=== PATIENT | female | born 1970 | race Caucasian/White ===

== ENCOUNTER 2021-01-05 21:05 | Inpatient (IN) ==
[2021-01-05 22:04] LABS: Basophils % 0.3 %; Eosinophils # 0.1 K/mcL (0.0-0.6); Eosinophils % 1.4 %; Hematocrit 35.3 % (35.3-44.9); Immature Granulocytes % 0.5 % (0-4); Lymphocytes # 1.8 K/mcL (0.6-4.6); Lymphocytes % 24.7 %; Mean Corpuscular HGB Conc 31.2 g/dL (31.6-35.5); Mean Corpuscular Hemoglobin 25.6 pg (28.0-33.3); Mean Corpuscular Volume 82.3 fL (83.0-100.0); Mean Platelet Volume 10.5 fL (9.4-12.4); Monocytes # 0.5 K/mcL (0.0-1.3); Monocytes % 7.2 %; Neutrophils # 4.8 K/mcL (1.6-8.9); Platelet Count 294 K/mcL (140-400); Red Blood Count 4.29 M/mcL (3.82-4.97); Red Cell Distribution Width 13.9 % (11.5-14.5); Segmented Neutrophils % 65.9 %; White Blood Count 7.3 K/mcL (4.3-11.1)
[2021-01-05] MEDS ORDERED: Isovue-370 500 ML BOTTLE IVP ONE (22:07)
[2021-01-05 22:33] LABS: Chloride 99 mEq/L (98-107); Potassium 3.7 mEq/L (3.5-5.1); Sodium 134 mEq/L (136-145)
[2021-01-05 22:50] LABS: BUN/Creatinine Ratio 18 (6-26); Blood Urea Nitrogen 15 mg/dL (6-20); C-Reactive Protein 67 mg/L (Less than 10); Calcium 9.1 mg/dL (8.6-10.3); Carbon Dioxide 26 mEq/L (23-29); Glucose 249 mg/dL (70-105); Osmolality,Calculated 287 (280-300); eGFR For African Americans > 60 (> 60); eGFR For Non-African Americans > 60 (> 60)
[2021-01-06] MEDS ORDERED: Piperacillin/Tazobactam 3.375 GM in Water for inj. (sterile) 20 ML IVP ONE (00:35)
[2021-01-06] MEDS ORDERED: Vancomycin 1,500 MG/265 ML IV.SOLN IVPB ONE (01:00)
[2021-01-06 01:36] LABS: Bilirubin,Urine Negative (Negative); Blood,Urine Negative (Negative); Clarity,Urine Clear (Clear); Color,Urine Colorless (Yellow); Glucose,Urine (UA) 500 mg/dL (Normal); Ketones,Urine Negative (Negative); Leukocyte Esterase,Urine Negative (Negative); Mucus,Urine Few per lpf (None-Few); Nitrite,Urine Negative (Negative); PH,Urine 6.5 pH Units (5.0-8.0); Protein,Urine Trace mg/dL (Neg-Trace); RBC,Urine 0-3 per hpf (0-3); Specific Gravity,Urine > 1.030 (1.010-1.025); Squamous Epithelial Cell,Urine Few per hpf (None-Few); Urobilinogen,Urine Normal (Normal); WBC,Urine 0-3 per hpf (0-3)
[2021-01-06] MEDS ORDERED: Ondansetron 4 MG/2 ML VIAL IVP PRN ×2 (02:06→17:32)
[2021-01-06] MEDS ORDERED: Naloxone 0.4 MG/ML INJ IVP PRN ×2 (02:06→17:32)
[2021-01-06] MEDS ORDERED: *HR* Dextrose 50 % in Water (Vial) 50 ML VIAL IVP PRN ×2 (02:08→17:32)
[2021-01-06] MEDS ORDERED: D5% in Water 1,000 ML IVC PRN ×2 (02:08→17:32)
[2021-01-06] MEDS ORDERED: Dextrose Gel 15 GM/37.5 ML TUBE PO PRN ×4 (02:08→17:32)
[2021-01-06] MEDS: Insulin LISPRO 300 UNITS/3 ML VIAL SUBQ SCH ×3 (05:58→19:27)
[2021-01-06 07:42] LABS: Hematocrit 32.6 % (35.3-44.9); Hemoglobin 10.5 g/dL (11.5-15.4); Mean Corpuscular HGB Conc 32.2 g/dL (31.6-35.5); Mean Corpuscular Hemoglobin 26.3 pg (28.0-33.3); Mean Corpuscular Volume 81.5 fL (83.0-100.0); Mean Platelet Volume 10.7 fL (9.4-12.4); Platelet Count 272 K/mcL (140-400); Red Cell Distribution Width 13.9 % (11.5-14.5); White Blood Count 7.5 K/mcL (4.3-11.1)
[2021-01-06 07:57] LABS: BUN/Creatinine Ratio 20 (6-26); Blood Urea Nitrogen 15 mg/dL (6-20); Carbon Dioxide 25 mEq/L (23-29); Chloride 100 mEq/L (98-107); Glucose 202 mg/dL (70-105); Osmolality,Calculated 285 (280-300); Potassium 3.7 mEq/L (3.5-5.1); Sodium 134 mEq/L (136-145); eGFR For African Americans > 60 (> 60); eGFR For Non-African Americans > 60 (> 60)
[2021-01-06] MEDS: Piperacillin/Tazobactam 3.375 GM in 0.9 % Sodium Chloride Mini Bag 100 ML IVPB SCH ×2 (08:41→15:36)
[2021-01-06 09:43] LABS: Estimated Average Glucose 237 mg/dl; Hemoglobin A1C 9.9 %
[2021-01-06] MEDS ORDERED: Vancomycin 1,250 MG/262.5 ML IV.SOLN IVPB SCH (13:00)
[2021-01-06] MEDS ORDERED: Famotidine 20 MG/2 ML VIAL ONE (16:02)
[2021-01-06] MEDS ORDERED: *HR* FentaNYL (PF) 100 MCG/2 ML VIAL ONE (16:02)
[2021-01-06] MEDS ORDERED: Acetaminophen IV 1,000 MG/100 ML BAG IVPB ONE ×2 (16:02→16:18)
[2021-01-06] MEDS ORDERED: *HR* Midazolam HCl 2 MG/2 ML VIAL ONE (16:03)
[2021-01-06] MEDS ORDERED: Lidocaine -MPF 2% 2 ML VIAL ONE (16:03)
[2021-01-06] MEDS ORDERED: Metoprolol XL (24 HR) Succ 25 MG TAB.ER.24H PO SCH (18:30)
[2021-01-07] MEDS: Vancomycin 1,250 MG/262.5 ML IV.SOLN IVPB SCH ×2 (00:20→20:38)
[2021-01-07] MEDS: Piperacillin/Tazobactam 3.375 GM in 0.9 % Sodium Chloride Mini Bag 100 ML IVPB SCH ×3 (00:20→16:25)
[2021-01-07] MEDS: Insulin LISPRO 300 UNITS/3 ML VIAL SUBQ SCH ×4 (00:40→17:18)
[2021-01-07 03:24] LABS: % Iron Saturation 13 % (15-50); BUN/Creatinine Ratio 16 (6-26); Blood Urea Nitrogen 13 mg/dL (6-20); Calcium 8.6 mg/dL (8.6-10.3); Carbon Dioxide 28 mEq/L (23-29); Chloride 99 mEq/L (98-107); Glucose 209 mg/dL (70-105); Iron 41 mcg/dL (50-170); Magnesium 1.5 mg/dL (1.6-2.6); Osmolality,Calculated 284 (280-300); Potassium 3.8 mEq/L (3.5-5.1); Sodium 134 mEq/L (136-145); Transferrin 228 mg/dL (203-362); eGFR For African Americans > 60 (> 60); eGFR For Non-African Americans > 60 (> 60)
[2021-01-07 03:25] LABS: Basophils % 0.4 %; Eosinophils # 0.1 K/mcL (0.0-0.6); Eosinophils % 1.3 %; Hematocrit 34.4 % (35.3-44.9); Hemoglobin 10.9 g/dL (11.5-15.4); Immature Granulocytes % 0.4 % (0-4); Lymphocytes # 0.8 K/mcL (0.6-4.6); Mean Corpuscular HGB Conc 31.7 g/dL (31.6-35.5); Mean Corpuscular Hemoglobin 26.3 pg (28.0-33.3); Mean Corpuscular Volume 82.9 fL (83.0-100.0); Mean Platelet Volume 10.6 fL (9.4-12.4); Monocytes # 0.4 K/mcL (0.0-1.3); Monocytes % 8.1 %; Neutrophils # 3.3 K/mcL (1.6-8.9); Platelet Count 257 K/mcL (140-400); Red Blood Count 4.15 M/mcL (3.82-4.97); Segmented Neutrophils % 72.8 %; White Blood Count 4.5 K/mcL (4.3-11.1)
[2021-01-07 03:42] LABS: Ferritin 67 ng/mL (10-120)
[2021-01-07 04:02] LABS: Folate > 22.3 ng/mL (3.0-16.0); Vitamin B12 101 pg/mL (250-1100)
[2021-01-07] MEDS ORDERED: Acetaminophen 325 MG TABLET PO PRN ×2 (07:31→20:53)
[2021-01-07] MEDS ORDERED: Cyanocobalamin (B-12) 1,000 MCG/ML VIAL SQ ONE (07:31)
[2021-01-07] MEDS ORDERED: PARoxetine 20 MG TABLET PO SCH ×2 (09:00→21:00)
[2021-01-07] MEDS ORDERED: Folic Acid 1 MG TABLET PO SCH (09:00)
[2021-01-07] MEDS ORDERED: Iron Sucrose Complex 250 MG in 0.9 % Sodium Chloride 250 ML IVPB SCH (09:00)
[2021-01-07] MEDS ORDERED: Loratadine 10 MG TABLET PO SCH (09:00)
[2021-01-07] MEDS ORDERED: Cholecalciferol (D-3) 1,000 UNIT (25MCG) TABLET PO SCH (09:00)
[2021-01-07] MEDS ORDERED: Metoprolol XL (24 HR) Succ 25 MG TAB.ER.24H PO SCH (09:00)
[2021-01-07] MEDS ORDERED: NON-FORMULARY MEDICATION 1 EACH EACH (Omeprazole [Prilosec] 40 MG Capsule.Dr) PO SCH (09:00)
[2021-01-07] MEDS ORDERED: *HR* OxyCODONE Immed Rel 5 MG TABLET PO PRN (13:26)
[2021-01-07] MEDS: Insulin DETEMIR 100 UNIT/ML X5UNITS SUBQ SCH (14:17)
[2021-01-07] MEDS: Vancomycin 1,500 MG/265 ML IV.SOLN IVPB SCH (14:17)
[2021-01-07] MEDS: Metoprolol XL (24 HR) Succ 50 MG TAB.ER.24H PO SCH (14:17)
[2021-01-07] MEDS ORDERED: Insulin LISPRO 300 UNITS/3 ML VIAL SUBQ SCH (21:00)
[2021-01-08] MEDS: Piperacillin/Tazobactam 3.375 GM in 0.9 % Sodium Chloride Mini Bag 100 ML IVPB SCH ×3 (01:19→15:49)
[2021-01-08] MEDS: Vancomycin 1,500 MG/265 ML IV.SOLN IVPB SCH ×2 (01:19→15:48)
[2021-01-08 02:44] LABS: Basophils % 0.8 %; Eosinophils # 0.1 K/mcL (0.0-0.6); Eosinophils % 1.4 %; Hematocrit 34.3 % (35.3-44.9); Immature Granulocytes % 1.4 % (0-4); Lymphocytes # 1.7 K/mcL (0.6-4.6); Lymphocytes % 33.3 %; Mean Corpuscular HGB Conc 32.1 g/dL (31.6-35.5); Mean Corpuscular Hemoglobin 26.2 pg (28.0-33.3); Mean Corpuscular Volume 81.7 fL (83.0-100.0); Mean Platelet Volume 10.3 fL (9.4-12.4); Monocytes # 0.6 K/mcL (0.0-1.3); Monocytes % 12.4 %; Neutrophils # 2.6 K/mcL (1.6-8.9); Platelet Count 293 K/mcL (140-400); Red Cell Distribution Width 14.2 % (11.5-14.5); Segmented Neutrophils % 50.7 %; White Blood Count 5.2 K/mcL (4.3-11.1)
[2021-01-08 03:01] LABS: BUN/Creatinine Ratio 13 (6-26); Blood Urea Nitrogen 11 mg/dL (6-20); Calcium 8.6 mg/dL (8.6-10.3); Carbon Dioxide 27 mEq/L (23-29); Chloride 100 mEq/L (98-107); Glucose 136 mg/dL (70-105); Magnesium 2.1 mg/dL (1.6-2.6); Osmolality,Calculated 277 (280-300); Potassium 3.4 mEq/L (3.5-5.1); Sodium 133 mEq/L (136-145); eGFR For African Americans > 60 (> 60); eGFR For Non-African Americans > 60 (> 60)
[2021-01-08] MEDS: Insulin LISPRO 300 UNITS/3 ML VIAL SUBQ SCH ×3 (08:46→17:39)
[2021-01-08] MEDS: Insulin DETEMIR 100 UNIT/ML X5UNITS SUBQ SCH ×2 (08:47→21:50)
[2021-01-08] MEDS: Metoprolol XL (24 HR) Succ 50 MG TAB.ER.24H PO SCH (08:48)
[2021-01-08] MEDS ORDERED: PARoxetine 20 MG TABLET PO SCH (09:00)
[2021-01-08] MEDS: PARoxetine 20 MG TABLET PO SCH (21:50)
[2021-01-08] MEDS: amLODIPine 5 MG TABLET PO SCH (21:50)
[2021-01-09] MEDS: Piperacillin/Tazobactam 3.375 GM in 0.9 % Sodium Chloride Mini Bag 100 ML IVPB SCH ×3 (01:11→15:04)
[2021-01-09] MEDS: Vancomycin 1,500 MG/265 ML IV.SOLN IVPB SCH (01:11)
[2021-01-09 01:42] LABS: Basophils % 0.6 %; Eosinophils # 0.2 K/mcL (0.0-0.6); Eosinophils % 2.9 %; Hematocrit 31.1 % (35.3-44.9); Hemoglobin 10.2 g/dL (11.5-15.4); Immature Granulocytes % 0.6 % (0-4); Lymphocytes % 30.3 %; Mean Corpuscular HGB Conc 32.8 g/dL (31.6-35.5); Mean Corpuscular Hemoglobin 25.6 pg (28.0-33.3); Mean Corpuscular Volume 77.9 fL (83.0-100.0); Monocytes # 0.7 K/mcL (0.0-1.3); Monocytes % 10.2 %; Neutrophils # 3.7 K/mcL (1.6-8.9); Platelet Count 287 K/mcL (140-400); Red Blood Count 3.99 M/mcL (3.82-4.97); Red Cell Distribution Width 14.2 % (11.5-14.5); Segmented Neutrophils % 55.4 %; White Blood Count 6.6 K/mcL (4.3-11.1)
[2021-01-09 02:02] LABS: BUN/Creatinine Ratio 21 (6-26); Blood Urea Nitrogen 15 mg/dL (6-20); Calcium 8.7 mg/dL (8.6-10.3); Carbon Dioxide 26 mEq/L (23-29); Chloride 100 mEq/L (98-107); Glucose 165 mg/dL (70-105); Magnesium 1.8 mg/dL (1.6-2.6); Osmolality,Calculated 281 (280-300); Potassium 3.7 mEq/L (3.5-5.1); Sodium 133 mEq/L (136-145); eGFR For African Americans > 60 (> 60); eGFR For Non-African Americans > 60 (> 60)
[2021-01-09] MEDS: Insulin LISPRO 300 UNITS/3 ML VIAL SUBQ SCH ×3 (08:28→17:33)
[2021-01-09] MEDS: Insulin DETEMIR 100 UNIT/ML X5UNITS SUBQ SCH ×2 (08:29→21:07)
[2021-01-09] MEDS: Metoprolol XL (24 HR) Succ 50 MG TAB.ER.24H PO SCH (08:30)
[2021-01-09] MEDS: amLODIPine 5 MG TABLET PO SCH (08:30)
[2021-01-09] MEDS: Vancomycin 1,750 MG/517.5 ML IV.SOLN IVPB SCH (13:37)
[2021-01-09] MEDS: PARoxetine 20 MG TABLET PO SCH (21:06)
[2021-01-10] MEDS: Vancomycin 1,750 MG/517.5 ML IV.SOLN IVPB SCH (00:50)
[2021-01-10] MEDS: Piperacillin/Tazobactam 3.375 GM in 0.9 % Sodium Chloride Mini Bag 100 ML IVPB SCH ×2 (00:51→07:58)
[2021-01-10 03:50] LABS: Basophils % 0.5 %; Eosinophils # 0.1 K/mcL (0.0-0.6); Eosinophils % 2.4 %; Hematocrit 31.3 % (35.3-44.9); Hemoglobin 10.3 g/dL (11.5-15.4); Immature Granulocytes % 0.8 % (0-4); Lymphocytes # 1.9 K/mcL (0.6-4.6); Lymphocytes % 31.5 %; Mean Corpuscular HGB Conc 32.9 g/dL (31.6-35.5); Mean Corpuscular Hemoglobin 25.6 pg (28.0-33.3); Mean Corpuscular Volume 77.7 fL (83.0-100.0); Mean Platelet Volume 10.2 fL (9.4-12.4); Monocytes # 0.6 K/mcL (0.0-1.3); Monocytes % 9.6 %; Neutrophils # 3.3 K/mcL (1.6-8.9); Platelet Count 286 K/mcL (140-400); Red Blood Count 4.03 M/mcL (3.82-4.97); Red Cell Distribution Width 13.8 % (11.5-14.5); Segmented Neutrophils % 55.2 %; White Blood Count 5.9 K/mcL (4.3-11.1)
[2021-01-10 04:07] LABS: BUN/Creatinine Ratio 15 (6-26); Blood Urea Nitrogen 12 mg/dL (6-20); Calcium 8.6 mg/dL (8.6-10.3); Carbon Dioxide 24 mEq/L (23-29); Chloride 101 mEq/L (98-107); Glucose 242 mg/dL (70-105); Magnesium 1.7 mg/dL (1.6-2.6); Osmolality,Calculated 286 (280-300); Potassium 3.8 mEq/L (3.5-5.1); Sodium 134 mEq/L (136-145); eGFR For African Americans > 60 (> 60); eGFR For Non-African Americans > 60 (> 60)
[2021-01-10] MEDS: Insulin DETEMIR 100 UNIT/ML X5UNITS SUBQ SCH (07:58)
[2021-01-10] MEDS: Insulin LISPRO 300 UNITS/3 ML VIAL SUBQ SCH ×2 (07:58→12:19)
[2021-01-10] MEDS: amLODIPine 5 MG TABLET PO SCH (07:59)
[2021-01-10] MEDS: Metoprolol XL (24 HR) Succ 50 MG TAB.ER.24H PO SCH (07:59)
[2021-01-10] MEDS ORDERED: Vancomycin 1,500 MG/265 ML IV.SOLN IVPB SCH (14:00)
[2021-01-10 14:34] VITALS: BP 126/75
== END 2021-01-10 16:23 | disposition home or self-care (01) | DRG 314 ==
LOC: EMEROOARM 21:05 → 3ANU 21:05 → SUATTDRO 01-06 01:35 → 3ANU 01-06 02:30
PROVIDERS: ADMIT Internal Medicine; ATTEND Pharmacist